=== PATIENT | female | born 1980 | race Caucasian/White ===

== ENCOUNTER 2019-01-28 11:09 | Outpatient (CLI) | payer OTHER | END 2019-01-28 11:23 | disposition home or self-care (01) | LOC: LAB 11:09 | DX: E03.8 Other specified hypothyroidism (principal); E78.00 Pure hypercholesterolemia, unspecified; R76.0 Raised antibody titer; R19.5 Other fecal abnormalities ==

== ENCOUNTER 2019-01-28 12:06 | Outpatient (CLI) | payer OTHER | END 2019-01-28 12:08 | disposition home or self-care (01) | LOC: SONOGRAMA 12:06 | DX: E01.0 Iodine-deficiency related diffuse (endemic) goiter (principal) ==

== ENCOUNTER 2019-01-30 11:05 | Outpatient (CLI) | payer OTHER | END 2019-01-30 14:54 | disposition home or self-care (01) | LOC: LAB 11:05 | DX: E03.8 Other specified hypothyroidism (principal); E78.00 Pure hypercholesterolemia, unspecified; R76.0 Raised antibody titer; R19.5 Other fecal abnormalities ==

== ENCOUNTER 2022-02-23 20:22 | Inpatient (IN) | payer OTHER ==
[~2022-02-23 20:22] MED LIST: LEVOTHYROXINE25 MCG PO
== END 2022-02-24 10:04 | disposition home or self-care (01) | DRG 779 ==
LOC: CIR.AMB 20:22 → OB/GYN 21:17
PROVIDERS: ADMIT Obstetrics & Gynecology Maternal & Fetal Medicine; ATTEND Obstetrics & Gynecology Maternal & Fetal Medicine
PROC: 10D17Z9 Manual Extraction of Products of Conception, Retained, Via Natural or Artificial Opening (ICD-10-PCS; principal; 2022-02-23 19:15)
DX: O02.1 Missed abortion (principal); Z20.822 Contact with and (suspected) exposure to COVID-19; Z3A.01 Less than 8 weeks gestation of pregnancy